=== PATIENT | male | born 1995 | race Caucasian/White ===

== ENCOUNTER 2018-09-03 19:44 | Emergency (ER) | payer MEDICAID ==
[~2018-09-03] VITALS: Ht 170.2 cm; Wt 79.0 kg
[2018-09-03 20:03] VITALS: BP 130/72; Ht 170.2 cm; Wt 79.0 kg
== END 2018-09-03 21:18 | disposition home or self-care (01) ==
LOC: ED 19:44
DX: J40 Bronchitis, not specified as acute or chronic (principal)

== ENCOUNTER 2020-03-18 21:28 | Emergency (ER) | payer MEDICAID, SELFPAY ==
[~2020-03-18] VITALS: Ht 170.2 cm; Wt 85.3 kg
[2020-03-18 21:29] VITALS: Ht 170.2 cm; Wt 85.3 kg
[2020-03-18 22:26] VITALS: BP 122/78
== END 2020-03-18 22:26 | disposition home or self-care (01) ==
LOC: ED 21:28
DX: J40 Bronchitis, not specified as acute or chronic (principal)
CPT/HCPCS: Q0092